=== PATIENT | female | born 1990 | race Caucasian/White ===

== ENCOUNTER 2022-08-31 09:33 | Emergency (ER) | payer OTHER, SELFPAY ==
[2022-08-31 09:36] VITALS: BP 126/87; PULSE 99; RESP 18; TEMP 36.3; O2SAT 100
[2022-08-31 10:16] LABS: Appearance Urine Cloudy (Clear); Bilirubin Urine 1+ (Negative); Blood Urine 3+ (Negative); Color Urine Dark Yellow (Yellow); Glucose Urine UA Negative (Negative); Ketones Urine 1+ mg/dL (Negative); Leukocyte Esterase Ur Negative LEU/UL (Negative); Nitrate Urine Negative (Negative); Protein Urine 2+ mg/dL (Negative); Specific Grav Ur >= 1.030 (1.001-1.035); Urobilinogen Urine 0.2 mg/dL (<2.0); pH Urine 5.5 (5.0-9.0)
[2022-08-31 10:22] LABS: Bacteria Urine Trace /hpf; Mucus Urine Heavy /lpf; RBC Urine >75 /hpf (0-2); Squamous Epithelial Cell Urine Few /hpf (Few)
[2022-08-31 10:24] LABS: Add Urine Microscopic? YES
--- NOTE | 2022-08-31 11:41 | ED.FEMALEGU ---
HPI - Female Genitourinary General Chief complaint: Urogenital-Female Stated complaint: blood in urine Time Seen by Provider: 08/31/22 11:23 Source: patient Mode of arrival: ambulatory Limitations: no limitations History of Present Illness HPI Narrative: This is a 32-year-old female that presents to the emergency department for hematuria. Ongoing over the last 4 days. Also reports some flank pain. Denies fever, vomiting, or dysuria. Related Data Allergies Allergy/AdvReac Type Severity Reaction Status Date / Time No Known Allergies Allergy Verified 08/31/22 11:18 Review of Systems Review of Systems: CONSTITUTIONAL: Denies fever GASTROINTESTINAL: Denies abdominal pain, nausea, vomiting GENITOURINARY: Reports hematuria. Denies dysuria All systems reviewed & are unremarkable except as noted in HPI and below PMFSH Past Medical History Medical History (Updated 08/31/22 @ 12:13 by Rachana Connolly PA-C) History of hepatitis Social History Social History (Updated 08/31/22 @ 11:42 by Rachana Connolly PA-C) Smoking status: Former smoker Alcohol intake: current Substance use: current Substance use type: marijuana Exam Narrative: GENERAL: Well-appearing, well-nourished, and in no acute distress. HEAD: Normocephalic, atraumatic. EYES: EOMI. CHEST: Clear to auscultation. No respiratory distress. No wheezes rales or rhonchi HEART: Regular rate and rhythm. No murmur heard. Normal peripheral pulses. ABDOMEN: Soft, nontender, nondistended, normal active bowel sounds. No CVA tenderness EXTREMITIES: Normal range of motion. No edema. SKIN: Warm, dry, no rash. NEURO: No focal deficits. Alert and oriented x3. PSYCH: Normal mood and affect Course Course Emergency Course: Patient eloped before full work-up was done Vital Signs Vital signs: Vital Signs Temperature 97.3 F L 08/31/22 09:36 Pulse Rate 99 08/31/22 09:36 Respiratory Rate 18 08/31/22 09:36 Blood Pressure 126/87 08/31/22 09:36 Pulse Oximetry 100 08/31/22 09:36 Oxygen Delivery Room Air 08/31/22 09:36 Temperature 97.3 F L 08/31/22 09:36 Pulse Rate 99 08/31/22 09:36 Respiratory Rate 18 08/31/22 09:36 Blood Pressure 126/87 08/31/22 09:36 Pulse Oximetry 100 08/31/22 09:36 Oxygen Delivery Room Air 08/31/22 09:36 MDM - Female Genitourinary MDM Narrative Medical decision making narrative: Patient presents emergency department for hematuria ongoing over the last 4 days. She is afebrile and nontoxic-appearing. UA with greater than 75 red blood cells. Also 4-6 white blood cells. No leuk esterase or nitrates. Bedside test is negative. Spoke with patient about obtaining further work-up for evaluation of hematuria. She eloped after I saw her and before any further evaluation or management Differential Diagnosis Differential diagnosis: Likely urinary tract infection and other (kidney stone) Lab Data Attestation: I reviewed the patient's lab results. Labs: Lab Results 08/31/22 Range/Units 10:04 Urine Color Dark yellow (Yellow) Urine Appearance Cloudy H (Clear) Urine pH 5.5 (5.0-9.0) Ur Specific [place] >= 1.030 (1.001-1.035) Urine Protein 2+ H (Negative) mg/dL Urine Glucose (UA) Negative (Negative) mg/dL Urine Ketones 1+ H (Negative) mg/dL Ur Blood (Man) 3+ H (Negative) Urine Nitrate Negative (Negative) Urine Bilirubin 1+ H (Negative) Urine Urobilinogen 0.2 (<2.0) mg/dL Leukocyte Esterase Rfl Negative (Negative) ASHLYN/UL Urine RBC >75 H (0-2) /hpf Urine WBC 4-6 H /hpf Ur Squamous Epith Cells Few (Few) /hpf Urine Bacteria Trace /hpf Urine Mucus Heavy H /lpf UCG Bedside Result Negative Reference Range: Negative Critical Care Time Critical Care Time Critical Care Time: No Discharge Plan Discharge Clinical Impression: Hematuria Qualifiers: Hematuria type:
--- NOTE | 2022-08-31 12:08 | PC.NURSE ---
pt left d/t wait time. pt reported decreased bleeding. encouraged to call pcp or return to ED if problems persisted or worsened. pt agreeable to this
== END 2022-08-31 12:10 | disposition left against medical advice (07) ==
PROVIDERS: Emergency Provider Physician Assistant; PCP Family Medicine Adolescent Medicine
DX: R31.0 Gross hematuria (principal)
CPT/HCPCS: 81001; 81025; 87077; 87086; 87088; 87186; 99283